=== PATIENT | female | born 1980 | race Hispanic/Latino ===

== ENCOUNTER 2024-11-14 20:34 | Emergency (ER) | payer SELFPAY ==
[~2024-11-14] VITALS: Ht 152.4 cm; Wt 53.5 kg
[2024-11-14] MEDS ORDERED: TYLENOL325 MG PO (22:28)
[2024-11-14] MEDS ORDERED: IBUPROFEN600 MG PO (22:28)
[2024-11-14 23:03] VITALS: PULSE 73; RESP 16; TEMP 98
[2024-11-14] MEDS: IBUPROFEN 200 MG TAB PO ONE (23:09)
[2024-11-14 23:23] VITALS: BP 167/81; PULSE 73; RESP 16; TEMP 98; O2SAT 100
== END 2024-11-14 23:36 | disposition home or self-care (01) ==
LOC: FSED 20:40
DX: S62.336A Displaced fracture of neck of fifth metacarpal bone, right hand, initial encounter for closed fracture (principal); W22.09XA Striking against other stationary object, initial encounter; Y92.89 Other specified places as the place of occurrence of the external cause; F17.210 Nicotine dependence, cigarettes, uncomplicated
CPT/HCPCS: 99284